=== PATIENT | female | born 1945 | race Caucasian/White ===

== ENCOUNTER 2018-06-25 18:28 | Emergency (ER) | payer OTHER | END 2018-06-25 20:07 | disposition home or self-care (01) | LOC: EDH 18:28 | DX: S52.021A Displaced fracture of olecranon process without intraarticular extension of right ulna, initial encounter for closed fracture (principal); I10 Essential (primary) hypertension; Z98.890 Other specified postprocedural states; W18.39XA Other fall on same level, initial encounter; Y93.01 Activity, walking, marching and hiking; Y92.89 Other specified places as the place of occurrence of the external cause; Y99.8 Other external cause status | CPT/HCPCS: 29105; 73080 ==